=== PATIENT | female | born 1955 | race Caucasian/White ===

== ENCOUNTER 2016-07-12 12:53 | Inpatient (IN) | payer MEDICAID ==
[~2016-07-12] VITALS: Ht 180.3 cm; Wt 90.6 kg
--- NOTE | 2016-07-12 15:30 | NUR ---
PT ARRIVED TO THE FLOOR VIA WHEELCHAIR 3 LITERS OF O2 ON ISOLATION FOR FLU
[2016-07-12] MEDS ORDERED: COZAAR25 MG PO (16:31)
[2016-07-12] MEDS ORDERED: OMEPRAZOLE40 MG PO (16:32)
[2016-07-12] MEDS ORDERED: HYDROCHLOROTH12.5 M1 PO (16:33)
[2016-07-12] MEDS ORDERED: ASPIRIN81 MG PO (16:33)
[2016-07-12] MEDS ORDERED: NORVASC10 MG PO (17:32)
[2016-07-12] MEDS ORDERED: OMEPRAZOLE20 M1 PO (17:33)
[2016-07-12] MEDS ORDERED: DYRENIUM50 MG PO (17:34)
--- NOTE | 2016-07-12 18:19 | NUR ---
PT IS ALERT. NO SS OF DISTRESS AT THIS TIME. WILL CONTINUE TO MOTNIOR.
[2016-07-12 18:22] VITALS: Ht 180.3 cm; Wt 90.6 kg
[2016-07-12] MEDS ORDERED: VENTOLIN HFA18 GM INH (19:04)
--- NOTE | 2016-07-12 19:30 | NUR ---
PRN TYLENOL 500 MG GIVEN FOR FEVER 101 AND HEADACHE 5 OF TEN.
[2016-07-12 21:37] VITALS: BP 104/68
[2016-07-13 00:30] VITALS: BP 107/59
--- NOTE | 2016-07-13 01:57 | NUR ---
Recieved patient and report at 1900, alert and oriented X 4. Family at bedside, bed in low position and locked, Droplet precautions for flu, call light and water in reach, continue plan of care, continue to monitor.
--- NOTE | 2016-07-13 03:20 | NUR ---
Patient resting quietly in bed, no acute distress noted.
[2016-07-13 04:30] VITALS: BP 110/54
[2016-07-13 05:37] LABS: BASOPHILS 0.3 % (0.0-2.0); EOSINOPHILS 0 % (0-7); HEMOGLOBIN 12.1 g/dL (12-16); IMMATURE GRANULOCYTES 0.3 % (0-5); LYMPHOCYTES 19.2 % (15-50); MCH 29.1 pg (26.0-34.0); MCHC 32.7 g/dL (31.0-37.0); MCV 88.9 fL (80.0-100.0); MEAN PLATELET VOLUME 11.5 fL (7.4-10.4); MONOCYTES 8.2 % (2-11); PLATELET COUNT 76 10x3/uL (130-400); RBC 4.16 10x6/uL (4.00-5.40); RDW 14.1 % (11.5-14.5); WBC 3.2 10x3/uL (4.8-10.8)
[2016-07-13 05:56] LABS: ALBUMIN 3.2 g/dL (3.4-5.0); ANION GAP 12.2 mmol/L (8-16); BILIRUBIN - TOTAL 0.2 mg/dL (0.2-1.3); CALCIUM 8.2 mg/dL (8.5-10.1); CARBON DIOXIDE 25.6 mmol/L (21.0-32.0); CREATININE - SERUM 1.2 mg/dL (0.6-1.3); PROTEIN - SERUM 6.4 g/dL (6.4-8.2)
[2016-07-13 06:02] LABS: POTASSIUM - SERUM 2.8 mmol/L (3.5-5.1)
--- NOTE | 2016-07-13 08:31 | NUR ---
PT RESTING IN BED WITH EYES OPEN CALL LIGHT IN REACH PT EATING BREAKFAST NO PROBLEMS WILL MONITER
[2016-07-13 08:59] VITALS: BP 146/74
[2016-07-13 12:14] VITALS: BP 131/67
--- NOTE | 2016-07-13 14:56 | NUR ---
PT TEMP 101 WILL GIVE PT TYLENOL PER ORDER
--- NOTE | 2016-07-13 16:03 | NUR ---
PT IS ALERT. NO SS OF DISTRESS. WILL CONTINUE TO MONITOR.
[2016-07-13 16:13] VITALS: BP 143/65
[2016-07-13] MEDS ORDERED: IPRAT-ALBUT 0.5-3 ML UPD ×2 (17:50→17:51)
[2016-07-13] MEDS ORDERED: PREDNISONE10 MG PO (17:50)
[2016-07-13] MEDS ORDERED: TAMIFLU75 MG PO (17:50)
[2016-07-13] MEDS ORDERED: BENZONATATE200 MG PO (17:52)
[2016-07-13] MEDS ORDERED: K-DUR20 MEQ PO (17:55)
--- NOTE | 2016-07-13 18:31 | NUR ---
PT DISCHARGED TO HOME VIA WHEELCHAIR WITH FRIEND DISCHARGE SUMMARY AND MEDS REVIEWED WITH PT
== END 2016-07-13 18:30 | disposition home or self-care (01) | DRG 153 ==
LOC: D.M2 12:53
PROVIDERS: ADMIT Family Medicine
DX: J11.1 Influenza due to unidentified influenza virus with other respiratory manifestations (principal); J42 Unspecified chronic bronchitis; I10 Essential (primary) hypertension; E66.9 Obesity, unspecified; Z72.0 Tobacco use; Z68.27 Body mass index [BMI] 27.0-27.9, adult